=== PATIENT | female | born 1945 | race African-American/Black ===

== ENCOUNTER 2021-07-22 16:58 | Inpatient (IN) ==
[2021-07-22 17:40] LABS: Basophils % 0.3 % (0.0-0.8); Eosinophils % 0.1 % (0.00-10.9); Hematocrit 39.5 VOL% (35.7-47.0); Immature Granulocytes % 0.4 %; Immature Granulocytes Absolute 0.04 #; Lymphocytes # 0.6 10*3/uL (1.4-4.0); Lymphocytes % 5.6 % (21.3-54.2); Mean Corpuscular HGB Conc 32.9 GM/DL (32-36); Mean Corpuscular Volume 96.1 FL (87-102); Mean Platelet Volume 11.6 FL (9.6-12.0); Monocytes % 4.2 % (1.7-12.7); Neutrophils % 89.4 % (38.7-73.9); Platelet Count 163 T/CUMM (130-400); Red Blood Count 4.11 MC/CUMM (3.8-5.5); Red Cell Distribution Width 12.1 % (9.3-17.3); White Blood Count 10.4 T/CUMM (4-12)
[2021-07-22 18:04] LABS: Albumin 3.4 G/DL (3.4-5.0); Bilirubin,Total 0.8 MG/DL (0.20-1.00); Calcium 9.3 MG/DL (8.5-10.1); Osmolality,Calculated 275.1 MOS/KG (273-304); Potassium 4.2 MMOL/L (3.5-5.1); Total Protein 7.3 G/DL (6.4-8.2)
[2021-07-22] MEDS ORDERED: ONDANSETRON 4 MG/2 ML VIAL IV ONE (18:13)
[2021-07-22] MEDS ORDERED: SODIUM CHLORIDE 0.9% 1,000 ML IV STA ×2 (18:13→21:54)
[2021-07-22 21:20] LABS: Bilirubin,Urine Negative (Negative); Blood, Urine Large mg/dL (Negative); Glucose,Urine (UA) 50 mg/dL (Negative); Hyaline Casts,Urine 4 /LPF (0-3); Ketones,Urine 5 mg/dL (Negative); Mucus,Urine Occasional /LPF (Occasional); Nitrite,Urine Negative (Negative); Protein,Urine Negative; RBC,Urine 20 /HPF (0-4); Squamous Epithelial Cell,Urine Occasional /HPF (0-10); Urine Appearance CLEAR (Clear); Urine Color Yellow (Yellow); Urine Urobilinogen < 2.0 EU/DL (<2.0)
[2021-07-22] MEDS ORDERED: cefTRIAXone 1,000 MG in SODIUM CHLORIDE 0.9% 100 ML IV STA (21:47)
[2021-07-22] MEDS ORDERED: KETOROLAC 30 MG/1 ML VIAL IV STA (21:54)
[2021-07-23] MEDS ORDERED: GLUCAGON 1 MG VIAL IM PRN (01:55)
[2021-07-23] MEDS ORDERED: SIMETHICONE CHEW 125 MG TABLET PO PRN (01:55)
[2021-07-23] MEDS ORDERED: hydrALAZINE 20 MG/1 ML VIAL IV PRN (01:55)
[2021-07-23] MEDS ORDERED: MAGNESIUM SULF RIDER 4 GM/100 ML PREMIX IV PRN (01:55)
[2021-07-23] MEDS ORDERED: ONDANSETRON 4 MG/2 ML VIAL IV PRN (01:55)
[2021-07-23] MEDS ORDERED: POTASSIUM CHLORIDE RIDER 10 MEQ/100 ML PREMIX IV PRN (01:55)
[2021-07-23] MEDS ORDERED: SODIUM PHOSPHATE ENEMA 133 ML BOTTLE RECTAL STA (02:19)
[2021-07-23] MEDS ORDERED: LACTULOSE 20 GM/30 ML UDCUP PO STA (02:19)
[2021-07-23] MEDS ORDERED: DEXTROSE 10% 250 ML BAG IV PRN (02:45)
[2021-07-23 03:02] LABS: Barbiturates Screen,Urine Negative (Negative); Benzodiazepines Screen,Urine Negative (Negative); Cannabinoid Screen,Urine Negative (Negative); Opiate Screen,Urine Negative (Negative); Phencyclidine Screen,Urine Negative (Negative)
[2021-07-23 03:05] LABS: Basophils % 0.1 % (0.0-0.8); Hematocrit 33.4 VOL% (35.7-47.0); Immature Granulocytes % 0.8 %; Immature Granulocytes Absolute 0.06 #; Lymphocytes # 0.6 10*3/uL (1.4-4.0); Lymphocytes % 8.2 % (21.3-54.2); Mean Corpuscular HGB Conc 32.9 GM/DL (32-36); Mean Corpuscular Volume 95.2 FL (87-102); Mean Platelet Volume 11.6 FL (9.6-12.0); Monocytes % 3.8 % (1.7-12.7); Neutrophils % 87.1 % (38.7-73.9); Platelet Count 106 T/CUMM (130-400); Red Blood Count 3.51 MC/CUMM (3.8-5.5); Red Cell Distribution Width 12.4 % (9.3-17.3); White Blood Count 7.7 T/CUMM (4-12)
[2021-07-23 03:42] LABS: INR 1.1; PT Patient Result 12.2 SECS (10.5-12.0); Partial Thromboplastin Time 22.3 SECS (23.8-32.1)
[2021-07-23 03:49] LABS: Calcium 7.8 MG/DL (8.5-10.1); Osmolality,Calculated 284.3 MOS/KG (273-304); Thyroid Stimulating Hormone 0.328 uIU/ml (0.358-3.74)
[2021-07-23 04:18] LABS: ABG Base Excess -0.2 MMOL/L (-2.5-2.5); ABG HCO3 24.2 MMOL/L (20-26); ABG Oxygen Saturation 96.5 % (95-100); ABG PCO2 36.8 MM HG (35-48); ABG PH 7.421 (7.35-7.45); ABG PO2 83.3 MM HG (80-95); ABG TCO2 21.2 MMOL/L (23-27); Allen Test Positive; Pt O2 Delivery Device Room Air
[2021-07-23] MEDS: SODIUM CHLORIDE 0.9% 1,000 ML IV SCH ×3 (04:29→23:26)
[2021-07-23 04:49] LABS: Albumin 2.6 G/DL (3.4-5.0); Bilirubin,Direct 0.13 MG/DL (0.0-0.20); Bilirubin,Indirect 0.6 MG/DL (0.0-1.0); Bilirubin,Total 0.7 MG/DL (0.20-1.00); Total Protein 6.1 G/DL (6.4-8.2)
[2021-07-23] MEDS ORDERED: LACTATED RINGERS 500 ML IV ONE (06:27)
[2021-07-23] MEDS: INSULIN REGULAR 100 UNIT/ML SUBCUT SCH ×4 (08:15→22:09)
[2021-07-23] MEDS: DOCUSATE SODIUM 100 MG CAPSULE PO SCH ×2 (09:15→21:38)
[2021-07-23] MEDS: LACTULOSE 20 GM/30 ML UDCUP PO SCH ×2 (09:15→17:21)
[2021-07-23] MEDS: POLYETHYLENE GLYCOL POWDER 17 GM PACK PO SCH (09:16)
[2021-07-23] MEDS: ENOXAPARIN 40 MG/0.4 ML SYRINGE SUBCUT SCH (09:16)
[2021-07-23] MEDS: PANTOPRAZOLE 40 MG TABLET PO SCH (09:16)
[2021-07-23 09:25] LABS: Basophils % 0.1 % (0.0-0.8); Hematocrit 34.2 VOL% (35.7-47.0); Hemoglobin 11.2 GM/DL (12.0-16.0); Immature Granulocytes % 0.6 %; Immature Granulocytes Absolute 0.04 #; Lymphocytes # 0.4 10*3/uL (1.4-4.0); Lymphocytes % 6.6 % (21.3-54.2); Mean Corpuscular HGB Conc 32.7 GM/DL (32-36); Mean Corpuscular Volume 96.1 FL (87-102); Monocytes % 4.2 % (1.7-12.7); Neutrophils % 88.5 % (38.7-73.9); Platelet Count 122 T/CUMM (130-400); Red Blood Count 3.56 MC/CUMM (3.8-5.5); Red Cell Distribution Width 12.4 % (9.3-17.3); White Blood Count 6.7 T/CUMM (4-12)
[2021-07-23] MEDS ORDERED: HYDROmorphone 2 MG/1 ML VIAL IV PRN (09:31)
[2021-07-23] MEDS: amLODIPine 10 MG TABLET PO SCH (10:30)
[2021-07-23 10:53] LABS: Band Neutrophils 1 % (0-10); Lymphocytes 4 % (20-55); Segmented Neutrophils 93 % (50-85); Total Cells Counted 100
[2021-07-23 10:54] LABS: Ovalocytes Few; Platelet Estimate Adequate; Polychromasia Slight
[2021-07-23] MEDS ORDERED: ACETAMINOPHEN 650 MG SUPP RECTAL PRN (14:49)
[2021-07-23] MEDS: ACETAMINOPHEN 325 MG TABLET PO PRN (15:25)
[2021-07-23] MEDS: SIMVASTATIN 20 MG TABLET PO SCH (21:38)
[2021-07-23] MEDS: METOPROLOL TARTRATE 25 MG TABLET PO SCH (21:38)
[2021-07-24] MEDS: LACTULOSE 20 GM/30 ML UDCUP PO SCH ×3 (00:16→16:22)
[2021-07-24] MEDS: ACETAMINOPHEN 325 MG TABLET PO PRN (00:20)
[2021-07-24 06:59] LABS: Eosinophils % 0.2 % (0.00-10.9); Hematocrit 34.3 VOL% (35.7-47.0); Hemoglobin 10.9 GM/DL (12.0-16.0); Immature Granulocytes % 0.4 %; Immature Granulocytes Absolute 0.02 #; Lymphocytes # 0.6 10*3/uL (1.4-4.0); Lymphocytes % 13.4 % (21.3-54.2); Mean Corpuscular HGB Conc 31.8 GM/DL (32-36); Mean Corpuscular Volume 97.7 FL (87-102); Mean Platelet Volume 11.1 FL (9.6-12.0); Monocytes % 6.8 % (1.7-12.7); Neutrophils % 79.2 % (38.7-73.9); Platelet Count 88 T/CUMM (130-400); Red Blood Count 3.51 MC/CUMM (3.8-5.5); Red Cell Distribution Width 12.3 % (9.3-17.3); White Blood Count 4.5 T/CUMM (4-12)
[2021-07-24 07:17] LABS: Calcium 8.1 MG/DL (8.5-10.1); Osmolality,Calculated 279.5 MOS/KG (273-304); Potassium 3.4 MMOL/L (3.5-5.1)
[2021-07-24 07:22] LABS: Band Neutrophils 1 % (0-10); Eosinophils 1 % (0-10); Hypochromia 1+; Lymphocytes 10 % (20-55); Microcytosis 1+; Platelet Estimate Decreased; Segmented Neutrophils 84 % (50-85); Total Cells Counted 100
[2021-07-24] MEDS: INSULIN REGULAR 100 UNIT/ML SUBCUT SCH ×4 (10:05→21:12)
[2021-07-24] MEDS: METOPROLOL TARTRATE 25 MG TABLET PO SCH ×2 (10:06→21:25)
[2021-07-24] MEDS: ENOXAPARIN 40 MG/0.4 ML SYRINGE SUBCUT SCH (10:06)
[2021-07-24] MEDS: amLODIPine 10 MG TABLET PO SCH (10:06)
[2021-07-24] MEDS: POTASSIUM CHLORIDE 20 MEQ TABLET PO PRN (10:06)
[2021-07-24] MEDS: MAGNESIUM SULF RIDER 2 GM/50 ML PREMIX IV PRN (10:07)
[2021-07-24] MEDS: POLYETHYLENE GLYCOL POWDER 17 GM PACK PO SCH (10:07)
[2021-07-24] MEDS: DOCUSATE SODIUM 100 MG CAPSULE PO SCH ×2 (10:07→21:25)
[2021-07-24] MEDS: SODIUM CHLORIDE 0.9% 1,000 ML IV SCH ×2 (10:11→23:22)
[2021-07-24] MEDS: ZINC GLUCONATE 50 MG TABLET PO SCH (10:14)
[2021-07-24] MEDS: SERTRALINE 25 MG TABLET PO SCH (10:14)
[2021-07-24] MEDS: PANTOPRAZOLE 40 MG TABLET PO SCH (10:14)
[2021-07-24] MEDS: ASPIRIN EC 81 MG TABLET PO SCH (10:14)
[2021-07-24] MEDS: MICAFUNGIN 100 MG in SODIUM CHLORIDE 0.9% 100 ML IV SCH (10:14)
[2021-07-24] MEDS ORDERED: cefTRIAXone 1,000 MG in SODIUM CHLORIDE 0.9% 100 ML IV SCH (21:00)
[2021-07-24] MEDS: VERAPAMIL SR 120 MG TABLET PO SCH (21:24)
[2021-07-24] MEDS: SIMVASTATIN 20 MG TABLET PO SCH (21:25)
[2021-07-25] MEDS: LACTULOSE 20 GM/30 ML UDCUP PO SCH ×3 (00:44→17:46)
[2021-07-25] MEDS: SODIUM CHLORIDE 0.9% 1,000 ML IV SCH ×2 (05:08→13:37)
[2021-07-25 05:10] LABS: Basophils % 0.3 % (0.0-0.8); Eosinophils % 0.6 % (0.00-10.9); Hematocrit 30.7 VOL% (35.7-47.0); Hemoglobin 10.1 GM/DL (12.0-16.0); Immature Granulocytes % 0.3 %; Immature Granulocytes Absolute 0.01 #; Lymphocytes # 0.6 10*3/uL (1.4-4.0); Lymphocytes % 18.2 % (21.3-54.2); Mean Corpuscular HGB Conc 32.9 GM/DL (32-36); Mean Corpuscular Volume 96.2 FL (87-102); Mean Platelet Volume 11.6 FL (9.6-12.0); Monocytes % 9.7 % (1.7-12.7); Neutrophils % 70.9 % (38.7-73.9); Platelet Count 114 T/CUMM (130-400); Red Blood Count 3.19 MC/CUMM (3.8-5.5); White Blood Count 3.2 T/CUMM (4-12)
[2021-07-25 05:34] LABS: Atypical Lymphocytes Few; Band Neutrophils 3 % (0-10); Eosinophils 1 % (0-10); Lymphocytes 19 % (20-55); Segmented Neutrophils 71 % (50-85); Total Cells Counted 100
[2021-07-25 05:35] LABS: Hypochromia 1+; Microcytosis 1+; Ovalocytes Slight; Platelet Estimate Decreased
[2021-07-25 05:38] LABS: Albumin 1.9 G/DL (3.4-5.0); Bilirubin,Total 1.7 MG/DL (0.20-1.00); Calcium 7.9 MG/DL (8.5-10.1); Osmolality,Calculated 278.7 MOS/KG (273-304); Potassium 4.1 MMOL/L (3.5-5.1); Total Protein 5.5 G/DL (6.4-8.2)
[2021-07-25] MEDS: INSULIN REGULAR 100 UNIT/ML SUBCUT SCH ×4 (07:23→21:41)
[2021-07-25] MEDS: amLODIPine 10 MG TABLET PO SCH (08:16)
[2021-07-25] MEDS: SERTRALINE 25 MG TABLET PO SCH (08:16)
[2021-07-25] MEDS: PANTOPRAZOLE 40 MG TABLET PO SCH (08:16)
[2021-07-25] MEDS: ZINC GLUCONATE 50 MG TABLET PO SCH (08:16)
[2021-07-25] MEDS: METOPROLOL TARTRATE 25 MG TABLET PO SCH ×2 (08:16→21:40)
[2021-07-25] MEDS: ASPIRIN EC 81 MG TABLET PO SCH (08:16)
[2021-07-25] MEDS: DOCUSATE SODIUM 100 MG CAPSULE PO SCH ×2 (08:16→21:25)
[2021-07-25] MEDS: ENOXAPARIN 40 MG/0.4 ML SYRINGE SUBCUT SCH (08:17)
[2021-07-25] MEDS: POLYETHYLENE GLYCOL POWDER 17 GM PACK PO SCH (08:17)
[2021-07-25] MEDS ORDERED: MAGNESIUM CITRATE 300 ML BOTTLE PO ONE (09:00)
[2021-07-25] MEDS: cefTRIAXone 1,000 MG in SODIUM CHLORIDE 0.9% 100 ML IV SCH (09:49)
[2021-07-25] MEDS: MICAFUNGIN 100 MG in SODIUM CHLORIDE 0.9% 100 ML IV SCH (11:09)
[2021-07-25] MEDS ORDERED: cefTRIAXone 1,000 MG in SODIUM CHLORIDE 0.9% 100 ML IV ONE (18:47)
[2021-07-25] MEDS: SIMVASTATIN 20 MG TABLET PO SCH (21:40)
[2021-07-25] MEDS: VERAPAMIL SR 120 MG TABLET PO SCH (21:40)
[2021-07-26] MEDS: SODIUM CHLORIDE 0.9% 1,000 ML IV SCH ×3 (00:01→23:23)
[2021-07-26] MEDS: LACTULOSE 20 GM/30 ML UDCUP PO SCH ×3 (00:39→17:08)
[2021-07-26 05:42] LABS: Basophils % 0.3 % (0.0-0.8); Eosinophils % 0.9 % (0.00-10.9); Hematocrit 29.4 VOL% (35.7-47.0); Hemoglobin 9.7 GM/DL (12.0-16.0); Immature Granulocytes % 0.6 %; Immature Granulocytes Absolute 0.02 #; Lymphocytes # 1.1 10*3/uL (1.4-4.0); Lymphocytes % 30.7 % (21.3-54.2); Mean Corpuscular Volume 94.5 FL (87-102); Mean Platelet Volume 11.6 FL (9.6-12.0); Neutrophils % 57.5 % (38.7-73.9); Platelet Count 123 T/CUMM (130-400); Red Blood Count 3.11 MC/CUMM (3.8-5.5); White Blood Count 3.5 T/CUMM (4-12)
[2021-07-26 06:13] LABS: Calcium 8.1 MG/DL (8.5-10.1); Osmolality,Calculated 279.4 MOS/KG (273-304); Potassium 3.7 MMOL/L (3.5-5.1)
[2021-07-26 06:15] LABS: Eosinophils 1 % (0-10); Hypochromia 1+; Lymphocytes 29 % (20-55); Microcytosis 1+; Platelet Estimate Normal; Segmented Neutrophils 63 % (50-85); Total Cells Counted 100
[2021-07-26] MEDS: INSULIN REGULAR 100 UNIT/ML SUBCUT SCH ×4 (08:59→22:41)
[2021-07-26] MEDS: ASPIRIN EC 81 MG TABLET PO SCH (08:59)
[2021-07-26] MEDS: DOCUSATE SODIUM 100 MG CAPSULE PO SCH ×2 (08:59→20:57)
[2021-07-26] MEDS: ENOXAPARIN 40 MG/0.4 ML SYRINGE SUBCUT SCH (08:59)
[2021-07-26] MEDS: METOPROLOL TARTRATE 25 MG TABLET PO SCH ×2 (08:59→20:57)
[2021-07-26] MEDS: ZINC GLUCONATE 50 MG TABLET PO SCH (09:00)
[2021-07-26] MEDS: PANTOPRAZOLE 40 MG TABLET PO SCH (09:00)
[2021-07-26] MEDS: SERTRALINE 25 MG TABLET PO SCH (09:00)
[2021-07-26] MEDS: POLYETHYLENE GLYCOL POWDER 17 GM PACK PO SCH (09:00)
[2021-07-26] MEDS: MAGNESIUM SULF RIDER 2 GM/50 ML PREMIX IV PRN (09:03)
[2021-07-26] MEDS: cefTRIAXone 1,000 MG in SODIUM CHLORIDE 0.9% 100 ML IV SCH (11:50)
[2021-07-26] MEDS: MICAFUNGIN 100 MG in SODIUM CHLORIDE 0.9% 100 ML IV SCH ×2 (12:27→14:00)
[2021-07-26] MEDS ORDERED: LACTATED RINGERS 1,000 ML IV SCH (12:30)
[2021-07-26] MEDS ORDERED: fentaNYL 100 MCG/2 ML VIAL ONE (12:32)
[2021-07-26] MEDS ORDERED: LIDOCAINE 2% 5 ML VIAL ONE (13:21)
[2021-07-26] MEDS ORDERED: SUCCINYLCHOLINE 200 MG/10 ML VIAL ONE (13:21)
[2021-07-26] MEDS ORDERED: SEVOFLURANE 1 UNIT/15 MINUTE INH ONE (13:21)
[2021-07-26] MEDS ORDERED: ROCURONIUM 50 MG/5 ML VIAL IV ONE (13:21)
[2021-07-26] MEDS ORDERED: propofoL 200 MG/20 ML VIAL IV ONE (13:21)
[2021-07-26 13:29] LABS: Bilirubin,Urine Negative (Negative); Blood, Urine Moderate mg/dL (Negative); Glucose,Urine (UA) Negative (Negative); Ketones,Urine Negative (Negative); Mucus,Urine Occasional /LPF (Occasional); Nitrite,Urine Negative (Negative); Protein,Urine Negative; RBC,Urine 16 /HPF (0-4); Squamous Epithelial Cell,Urine Occasional /HPF (0-10); Urine Appearance CLEAR (Clear); Urine Color Colorless (Yellow); Urine Specific Gravity 1.008 (1.001-1.035); Urine Urobilinogen < 2.0 EU/DL (<2.0)
[2021-07-26] MEDS: SIMVASTATIN 20 MG TABLET PO SCH (20:57)
[2021-07-26] MEDS: VERAPAMIL SR 120 MG TABLET PO SCH (20:57)
[2021-07-27] MEDS: LACTULOSE 20 GM/30 ML UDCUP PO SCH ×3 (02:12→17:03)
[2021-07-27] MEDS: SODIUM CHLORIDE 0.9% 1,000 ML IV SCH ×4 (06:27→20:44)
[2021-07-27 06:42] LABS: Basophils % 0.3 % (0.0-0.8); Eosinophils # 0.1 10*3/uL (0.0-0.87); Eosinophils % 1.3 % (0.00-10.9); Hematocrit 31.7 VOL% (35.7-47.0); Hemoglobin 10.6 GM/DL (12.0-16.0); Immature Granulocytes Absolute 0.04 #; Lymphocytes # 1.3 10*3/uL (1.4-4.0); Lymphocytes % 32.1 % (21.3-54.2); Mean Corpuscular HGB Conc 33.4 GM/DL (32-36); Mean Corpuscular Volume 95.2 FL (87-102); Mean Platelet Volume 11.2 FL (9.6-12.0); Monocytes % 9.1 % (1.7-12.7); Neutrophils % 56.2 % (38.7-73.9); Platelet Count 121 T/CUMM (130-400); Red Blood Count 3.33 MC/CUMM (3.8-5.5)
[2021-07-27 07:00] LABS: Calcium 8.4 MG/DL (8.5-10.1); Osmolality,Calculated 281.4 MOS/KG (273-304); Potassium 3.6 MMOL/L (3.5-5.1)
[2021-07-27] MEDS ORDERED: DEXTROSE 50% 25 GM/50 ML VIAL IV PRN (07:46)
[2021-07-27] MEDS ORDERED: GLUCAGON 1 MG VIAL IM PRN (07:46)
[2021-07-27] MEDS: INSULIN REGULAR 100 UNIT/ML SUBCUT SCH ×4 (07:53→22:53)
[2021-07-27] MEDS: DOCUSATE SODIUM 100 MG CAPSULE PO SCH ×2 (08:18→20:45)
[2021-07-27] MEDS: SERTRALINE 25 MG TABLET PO SCH (08:18)
[2021-07-27] MEDS: ASPIRIN EC 81 MG TABLET PO SCH (08:18)
[2021-07-27] MEDS: PANTOPRAZOLE 40 MG TABLET PO SCH (08:18)
[2021-07-27] MEDS: POLYETHYLENE GLYCOL POWDER 17 GM PACK PO SCH (08:18)
[2021-07-27] MEDS: ENOXAPARIN 40 MG/0.4 ML SYRINGE SUBCUT SCH (08:18)
[2021-07-27] MEDS: ZINC GLUCONATE 50 MG TABLET PO SCH (08:18)
[2021-07-27] MEDS: METOPROLOL TARTRATE 25 MG TABLET PO SCH ×2 (08:57→20:44)
[2021-07-27] MEDS: cefTRIAXone 1,000 MG in SODIUM CHLORIDE 0.9% 100 ML IV SCH (09:54)
[2021-07-27] MEDS: MICAFUNGIN 100 MG in SODIUM CHLORIDE 0.9% 100 ML IV SCH (10:44)
[2021-07-27] MEDS: PHENAZOPYRIDINE 95 MG TABLET PO SCH ×2 (11:52→17:03)
[2021-07-27] MEDS: VERAPAMIL SR 120 MG TABLET PO SCH (20:44)
[2021-07-27] MEDS: SIMVASTATIN 20 MG TABLET PO SCH (20:44)
[2021-07-28] MEDS: LACTULOSE 20 GM/30 ML UDCUP PO SCH ×3 (01:33→16:52)
[2021-07-28 05:15] LABS: Basophils % 0.2 % (0.0-0.8); Eosinophils # 0.1 10*3/uL (0.0-0.87); Eosinophils % 1.2 % (0.00-10.9); Hematocrit 29.6 VOL% (35.7-47.0); Hemoglobin 9.7 GM/DL (12.0-16.0); Immature Granulocytes Absolute 0.05 #; Lymphocytes # 1.9 10*3/uL (1.4-4.0); Lymphocytes % 38.8 % (21.3-54.2); Mean Corpuscular HGB Conc 32.8 GM/DL (32-36); Mean Corpuscular Volume 95.8 FL (87-102); Mean Platelet Volume 11.4 FL (9.6-12.0); Monocytes % 7.2 % (1.7-12.7); Neutrophils % 51.6 % (38.7-73.9); Platelet Count 146 T/CUMM (130-400); Red Blood Count 3.09 MC/CUMM (3.8-5.5)
[2021-07-28 05:39] LABS: Calcium 8.2 MG/DL (8.5-10.1); Osmolality,Calculated 280.3 MOS/KG (273-304); Potassium 3.4 MMOL/L (3.5-5.1)
[2021-07-28 06:41] LABS: Platelet Estimate Adequate
[2021-07-28 06:42] LABS: Anisocytosis 1+; Macrocytosis 1+; Ovalocytes Few
[2021-07-28] MEDS: SODIUM CHLORIDE 0.9% 1,000 ML IV SCH ×2 (06:49→21:36)
[2021-07-28] MEDS: INSULIN REGULAR 100 UNIT/ML SUBCUT SCH ×4 (08:12→21:37)
[2021-07-28] MEDS: ASPIRIN EC 81 MG TABLET PO SCH (08:53)
[2021-07-28] MEDS: ZINC GLUCONATE 50 MG TABLET PO SCH (08:53)
[2021-07-28] MEDS: METOPROLOL TARTRATE 25 MG TABLET PO SCH ×2 (08:53→21:26)
[2021-07-28] MEDS: PANTOPRAZOLE 40 MG TABLET PO SCH (08:53)
[2021-07-28] MEDS: PHENAZOPYRIDINE 95 MG TABLET PO SCH ×3 (08:53→16:53)
[2021-07-28] MEDS: SERTRALINE 25 MG TABLET PO SCH (08:54)
[2021-07-28] MEDS: ENOXAPARIN 40 MG/0.4 ML SYRINGE SUBCUT SCH (08:54)
[2021-07-28] MEDS: cefTRIAXone 1,000 MG in SODIUM CHLORIDE 0.9% 100 ML IV SCH (08:54)
[2021-07-28] MEDS: DOCUSATE SODIUM 100 MG CAPSULE PO SCH ×2 (08:54→21:27)
[2021-07-28] MEDS: POLYETHYLENE GLYCOL POWDER 17 GM PACK PO SCH (09:01)
[2021-07-28] MEDS: MICAFUNGIN 100 MG in SODIUM CHLORIDE 0.9% 100 ML IV SCH (10:52)
[2021-07-28] MEDS: OXYBUTYNIN 5 MG TABLET PO SCH ×2 (12:00→21:27)
[2021-07-28] MEDS: POTASSIUM CHLORIDE 20 MEQ TABLET PO PRN ×3 (12:00→14:48)
[2021-07-28] MEDS: MAGNESIUM SULF RIDER 2 GM/50 ML PREMIX IV PRN (13:07)
[2021-07-28] MEDS: VERAPAMIL SR 120 MG TABLET PO SCH (21:26)
[2021-07-28] MEDS: SIMVASTATIN 20 MG TABLET PO SCH (21:27)
[2021-07-29] MEDS: LACTULOSE 20 GM/30 ML UDCUP PO SCH ×3 (00:31→16:59)
[2021-07-29 04:57] LABS: Basophils % 0.2 % (0.0-0.8); Eosinophils # 0.1 10*3/uL (0.0-0.87); Eosinophils % 1.6 % (0.00-10.9); Hematocrit 28.4 VOL% (35.7-47.0); Hemoglobin 9.2 GM/DL (12.0-16.0); Immature Granulocytes % 1.6 %; Immature Granulocytes Absolute 0.07 #; Lymphocytes # 1.6 10*3/uL (1.4-4.0); Lymphocytes % 34.6 % (21.3-54.2); Mean Corpuscular HGB Conc 32.4 GM/DL (32-36); Mean Corpuscular Volume 96.6 FL (87-102); Monocytes % 6.4 % (1.7-12.7); Neutrophils % 55.6 % (38.7-73.9); Platelet Count 164 T/CUMM (130-400); Red Blood Count 2.94 MC/CUMM (3.8-5.5); Red Cell Distribution Width 12.1 % (9.3-17.3); White Blood Count 4.5 T/CUMM (4-12)
[2021-07-29 05:11] LABS: Calcium 8.5 MG/DL (8.5-10.1); Osmolality,Calculated 280.3 MOS/KG (273-304)
[2021-07-29] MEDS: SODIUM CHLORIDE 0.9% 1,000 ML IV SCH (06:26)
[2021-07-29] MEDS: INSULIN REGULAR 100 UNIT/ML SUBCUT SCH ×4 (08:12→20:18)
[2021-07-29] MEDS: POLYETHYLENE GLYCOL POWDER 17 GM PACK PO SCH (09:16)
[2021-07-29] MEDS: SERTRALINE 25 MG TABLET PO SCH (09:16)
[2021-07-29] MEDS: ENOXAPARIN 40 MG/0.4 ML SYRINGE SUBCUT SCH (09:16)
[2021-07-29] MEDS: DOCUSATE SODIUM 100 MG CAPSULE PO SCH ×2 (09:17→20:47)
[2021-07-29] MEDS: OXYBUTYNIN 5 MG TABLET PO SCH ×2 (09:17→20:48)
[2021-07-29] MEDS: PHENAZOPYRIDINE 95 MG TABLET PO SCH (09:17)
[2021-07-29] MEDS: ASPIRIN EC 81 MG TABLET PO SCH (09:17)
[2021-07-29] MEDS: cefTRIAXone 1,000 MG in SODIUM CHLORIDE 0.9% 100 ML IV SCH (09:18)
[2021-07-29] MEDS: ZINC GLUCONATE 50 MG TABLET PO SCH (09:18)
[2021-07-29] MEDS: PANTOPRAZOLE 40 MG TABLET PO SCH (09:18)
[2021-07-29] MEDS: METOPROLOL TARTRATE 25 MG TABLET PO SCH ×2 (09:18→20:48)
[2021-07-29] MEDS: MICAFUNGIN 100 MG in SODIUM CHLORIDE 0.9% 100 ML IV SCH (10:28)
[2021-07-29] MEDS: SIMVASTATIN 20 MG TABLET PO SCH (20:47)
[2021-07-29] MEDS: VERAPAMIL SR 120 MG TABLET PO SCH (20:48)
[2021-07-30] MEDS: LACTULOSE 20 GM/30 ML UDCUP PO SCH ×3 (02:48→16:05)
[2021-07-30 06:09] LABS: Basophils % 0.4 % (0.0-0.8); Eosinophils # 0.1 10*3/uL (0.0-0.87); Eosinophils % 1.2 % (0.00-10.9); Hematocrit 28.7 VOL% (35.7-47.0); Hemoglobin 9.1 GM/DL (12.0-16.0); Immature Granulocytes % 2.5 %; Immature Granulocytes Absolute 0.13 #; Lymphocytes # 2.1 10*3/uL (1.4-4.0); Lymphocytes % 40.5 % (21.3-54.2); Mean Corpuscular HGB Conc 31.7 GM/DL (32-36); Mean Corpuscular Volume 97.3 FL (87-102); Mean Platelet Volume 11.1 FL (9.6-12.0); Monocytes % 7.4 % (1.7-12.7); Platelet Count 205 T/CUMM (130-400); Red Blood Count 2.95 MC/CUMM (3.8-5.5); Red Cell Distribution Width 12.3 % (9.3-17.3); White Blood Count 5.1 T/CUMM (4-12)
[2021-07-30 06:44] LABS: Calcium 8.9 MG/DL (8.5-10.1); Osmolality,Calculated 275.7 MOS/KG (273-304); Potassium 4.1 MMOL/L (3.5-5.1)
[2021-07-30] MEDS: cefTRIAXone 1,000 MG in SODIUM CHLORIDE 0.9% 100 ML IV SCH (08:51)
[2021-07-30] MEDS: ENOXAPARIN 40 MG/0.4 ML SYRINGE SUBCUT SCH (08:52)
[2021-07-30] MEDS: POLYETHYLENE GLYCOL POWDER 17 GM PACK PO SCH (08:52)
[2021-07-30] MEDS: METOPROLOL TARTRATE 25 MG TABLET PO SCH ×2 (08:54→20:42)
[2021-07-30] MEDS: ASPIRIN EC 81 MG TABLET PO SCH (08:54)
[2021-07-30] MEDS: OXYBUTYNIN 5 MG TABLET PO SCH ×2 (08:54→20:43)
[2021-07-30] MEDS: SERTRALINE 25 MG TABLET PO SCH (08:54)
[2021-07-30] MEDS: DOCUSATE SODIUM 100 MG CAPSULE PO SCH ×2 (08:55→20:43)
[2021-07-30] MEDS: PANTOPRAZOLE 40 MG TABLET PO SCH (08:55)
[2021-07-30] MEDS: ZINC GLUCONATE 50 MG TABLET PO SCH (08:55)
[2021-07-30] MEDS: MICAFUNGIN 100 MG in SODIUM CHLORIDE 0.9% 100 ML IV SCH (09:05)
[2021-07-30] MEDS: INSULIN REGULAR 100 UNIT/ML SUBCUT SCH ×4 (10:33→20:46)
[2021-07-30] MEDS: VERAPAMIL SR 120 MG TABLET PO SCH (20:42)
[2021-07-30] MEDS: SIMVASTATIN 20 MG TABLET PO SCH (20:43)
[2021-07-31] MEDS: LACTULOSE 20 GM/30 ML UDCUP PO SCH ×3 (00:40→19:28)
[2021-07-31 06:55] LABS: Basophils % 0.4 % (0.0-0.8); Eosinophils # 0.1 10*3/uL (0.0-0.87); Eosinophils % 1.2 % (0.00-10.9); Immature Granulocytes % 2.5 %; Immature Granulocytes Absolute 0.13 #; Lymphocytes # 1.9 10*3/uL (1.4-4.0); Lymphocytes % 36.5 % (21.3-54.2); Mean Corpuscular HGB Conc 32.1 GM/DL (32-36); Mean Corpuscular Volume 96.6 FL (87-102); Mean Platelet Volume 10.8 FL (9.6-12.0); Monocytes % 7.6 % (1.7-12.7); Neutrophils % 51.8 % (38.7-73.9); Platelet Count 209 T/CUMM (130-400); Red Cell Distribution Width 12.4 % (9.3-17.3); White Blood Count 5.1 T/CUMM (4-12)
[2021-07-31 07:28] LABS: Calcium 8.8 MG/DL (8.5-10.1); Osmolality,Calculated 276.7 MOS/KG (273-304); Potassium 3.9 MMOL/L (3.5-5.1)
[2021-07-31] MEDS: ASPIRIN EC 81 MG TABLET PO SCH (09:16)
[2021-07-31] MEDS: PANTOPRAZOLE 40 MG TABLET PO SCH (09:18)
[2021-07-31] MEDS: OXYBUTYNIN 5 MG TABLET PO SCH ×2 (09:19→20:36)
[2021-07-31] MEDS: METOPROLOL TARTRATE 25 MG TABLET PO SCH ×2 (09:19→20:36)
[2021-07-31] MEDS: SERTRALINE 25 MG TABLET PO SCH (09:19)
[2021-07-31] MEDS: INSULIN REGULAR 100 UNIT/ML SUBCUT SCH ×4 (09:22→20:37)
[2021-07-31] MEDS: DOCUSATE SODIUM 100 MG CAPSULE PO SCH ×2 (09:23→20:36)
[2021-07-31] MEDS: ENOXAPARIN 40 MG/0.4 ML SYRINGE SUBCUT SCH (09:24)
[2021-07-31] MEDS: cefTRIAXone 1,000 MG in SODIUM CHLORIDE 0.9% 100 ML IV SCH (09:24)
[2021-07-31] MEDS: POLYETHYLENE GLYCOL POWDER 17 GM PACK PO SCH (09:24)
[2021-07-31] MEDS: ZINC GLUCONATE 50 MG TABLET PO SCH (09:25)
[2021-07-31] MEDS: MICAFUNGIN 100 MG in SODIUM CHLORIDE 0.9% 100 ML IV SCH (14:23)
[2021-07-31] MEDS: VERAPAMIL SR 120 MG TABLET PO SCH (20:36)
[2021-07-31] MEDS: SIMVASTATIN 20 MG TABLET PO SCH (20:36)
[2021-08-01] MEDS: LACTULOSE 20 GM/30 ML UDCUP PO SCH ×2 (00:31→10:36)
[2021-08-01] MEDS ORDERED: VORICONAZOLE 200 MG TABLET PO SCH (10:00)
[2021-08-01] MEDS: INSULIN REGULAR 100 UNIT/ML SUBCUT SCH ×2 (10:17→12:27)
[2021-08-01] MEDS: ASPIRIN EC 81 MG TABLET PO SCH (10:32)
[2021-08-01] MEDS: OXYBUTYNIN 5 MG TABLET PO SCH (10:32)
[2021-08-01] MEDS: ZINC GLUCONATE 50 MG TABLET PO SCH (10:32)
[2021-08-01] MEDS: DOCUSATE SODIUM 100 MG CAPSULE PO SCH (10:32)
[2021-08-01] MEDS: PANTOPRAZOLE 40 MG TABLET PO SCH (10:32)
[2021-08-01] MEDS: SERTRALINE 25 MG TABLET PO SCH (10:32)
[2021-08-01] MEDS: METOPROLOL TARTRATE 25 MG TABLET PO SCH (10:32)
[2021-08-01 11:43] VITALS: BP 137/60
[2021-08-01] MEDS: ENOXAPARIN 40 MG/0.4 ML SYRINGE SUBCUT SCH (12:15)
[2021-08-01] MEDS: POLYETHYLENE GLYCOL POWDER 17 GM PACK PO SCH (12:15)
[2021-08-01] MEDS: cefTRIAXone 1,000 MG in SODIUM CHLORIDE 0.9% 100 ML IV SCH (12:19)
== END 2021-08-01 15:54 | disposition home health service (06) | DRG 853 ==
LOC: N.ED 16:58 → N.EDINP 07-23 01:56 → SUATTDRO 07-23 01:56 → N.3E 07-23 11:57
PROVIDERS: ADMIT Internal Medicine; ATTEND Internal Medicine